=== PATIENT | male | born 1955 | race Caucasian/White ===

== ENCOUNTER 2017-09-15 11:05 | Inpatient (IN) | payer OTHER, BC ==
[2017-09-15] MEDS ORDERED: LIDOCAINE 1% (MDV) 10 ML INJ (13:03)
[2017-09-15] MEDS ORDERED: VERAPAMIL 5 MG INJ (13:03)
[2017-09-15] MEDS ORDERED: FENTAnyl 50 MCG/ML VIAL (13:03)
[2017-09-15] MEDS ORDERED: MIDAZOLAM 1 MG/ML 2 ML INJ ×2 (13:03→13:25)
[2017-09-15] MEDS ORDERED: NITROGLYCERIN (IC) 100 MCG/ML INJ ×2 (13:03→13:50)
[2017-09-15] MEDS ORDERED: IODIXANOL LOCM 100 ML BTL (13:03)
[2017-09-15] MEDS ORDERED: TICAGRELOR 90 MG TABLET (13:43)
[2017-09-15] MEDS: SOD CHLORIDE 0.9% 1,000 ML IV (14:00)
[2017-09-15] MEDS ORDERED: GLUCOSE GEL 15 GRAM TUBE BUCCAL (17:00)
[2017-09-15] MEDS ORDERED: GLUCOSE GEL 15 GRAM TUBE PO ×2 (17:00)
[2017-09-15] MEDS ORDERED: GLUCAGON 1 MG INJ IM (17:00)
[2017-09-15] MEDS ORDERED: DEXTROSE 50% 50 ML SYRINGE IV ×2 (17:00)
[2017-09-15] MEDS: ASPIRIN (EC) 81 MG TAB PO (17:55)
[2017-09-15] MEDS: INSULIN ASPART [NOVOLOG] 3 ML PEN SC ×2 (18:36→21:00)
[2017-09-15] MEDS ORDERED: ACETAMINOPHEN 325 MG TAB PO (20:00)
[2017-09-15] MEDS ORDERED: DOCUSATE SODIUM 100 MG CAP PO (20:00)
[2017-09-15] MEDS ORDERED: ONDANSETRON 4 MG INJ IV (20:00)
[2017-09-15] MEDS: INSULIN GLARGINE [LANTus] (100 UNITS/ML) SYG SC (20:00)
[2017-09-15] MEDS ORDERED: NACL 0.9% 3 ML SYG IV (20:00)
[2017-09-15] MEDS ORDERED: HYDROCODONE/APAP (5/325) TAB PO (20:00)
[2017-09-15] MEDS ORDERED: MAGNESIUM HYDROXIDE 30ML CUP PO (20:00)
[2017-09-15] MEDS ORDERED: morphine 2 MG INJ IV (20:00)
[2017-09-15] MEDS: ATORVASTATIN 80 MG TAB PO (20:46)
[2017-09-15] MEDS: GEMFIBROZIL 600 MG TAB PO (20:46)
[2017-09-15] MEDS: ZOLPIDEM 5 MG TAB PO (20:46)
[2017-09-15] MEDS: MONTELUKAST 10 MG TAB PO (20:47)
[2017-09-15] MEDS ORDERED: ATORVASTATIN 20 MG TAB PO (21:00)
[2017-09-15] MEDS: TICAGRELOR 90 MG TABLET PO (21:04)
[2017-09-16] MEDS: ACCU-CHEK XX (01:11)
[2017-09-16] MEDS ORDERED: LORAZEPAM 2 MG INJ IV (03:00)
[2017-09-16 05:41] LABS: ADD MAN DIFF? NO
[2017-09-16 05:48] LABS: BASOPHILS % 0.6 % (0.0-2.0); EOSINOPHILS # 0.1 10^3/ul (0.0-0.5); EOSINOPHILS % 1.8 % (0.0-7.0); HEMATOCRIT 40.1 % (42.0-52.0); HEMOGLOBIN 13.3 g/dl (14.0-18.0); LYMPHOCYTES # 1.2 10^3/ul (0.8-2.9); LYMPHOCYTES % 17.1 % (15.0-51.0); MEAN CORPUSCULAR HGB CONC 33.2 g/dl (32.0-37.0); MEAN CORPUSCULAR VOLUME 90.5 fl (82.0-101.0); MEAN PLATELET VOLUME 8.7 fl (7.4-10.4); MONOCYTE # 0.7 10^3/ul (0.3-0.9); MONOCYTES % 9.6 % (0.0-11.0); NEUTROPHILS % 70.6 % (39.0-77.0); PLATELET COUNT 379 10^3/UL (140-415); RED BLOOD COUNT 4.43 10^6/ul (4.70-6.10); RED CELL DISTRIBUTION WIDTH 12.9 % (11.5-14.5)
[2017-09-16 05:48] LABS: WHITE BLOOD COUNT 7.1 10^3/ul (4.8-10.8)
[2017-09-16 06:13] LABS: ANION GAP 14 (8-16); BLOOD UREA NITROGEN 29 mg/dl (7-20); CALCIUM 9.1 mg/dl (8.4-10.2); CARBON DIOXIDE 24 mmol/L (21-31); CHLORIDE 109 mmol/L (97-110); CHOL/HDL RATIO 3.9 RATIO; CREATININE 0.86 mg/dl (0.61-1.24); GLUCOSE 105 mg/dl (70-220); HDL CHOLESTEROL 43 mg/dl (30-78); LDL CHOLESTEROL,CALCULATED 87 mg/dl; POTASSIUM 3.5 mmol/L (3.5-5.1); SODIUM 143 mmol/L (135-144); TRIGLYCERIDES 203 mg/dl (0-149)
[2017-09-16 06:13] LABS: CHOLESTEROL 171 mg/dl (100-200)
[2017-09-16] MEDS ORDERED: BIVALIRUDIN 250MG /NS 50 ML 50 ML IVPB (06:55)
[2017-09-16] MEDS: INSULIN ASPART [NOVOLOG] 3 ML PEN SC ×2 (07:35→11:30)
[2017-09-16 07:50] LABS: HEMOGLOBIN A1C 6.4 % (0-5.9)
[2017-09-16] MEDS: NEBIVOLOL 5 MG TAB PO (09:11)
[2017-09-16] MEDS: LISINOPRIL 10 MG TAB PO (09:11)
[2017-09-16] MEDS: ASPIRIN (EC) 81 MG TAB PO (09:11)
[2017-09-16] MEDS: ALLOPURINOL 300 MG TAB PO (09:12)
[2017-09-16] MEDS: TICAGRELOR 90 MG TABLET PO (09:13)
[2017-09-16] MEDS: GEMFIBROZIL 600 MG TAB PO (09:19)
== END 2017-09-16 13:40 | disposition home or self-care (01) | DRG 247 ==
LOC: CCL 11:05 → SDS 11:05 → ICU 14:45 → CCL 22:30 → ICU 19:38
PROVIDERS: Internal Medicine
PROC: 027035Z Dilation of Coronary Artery, One Artery with Two Drug-eluting Intraluminal Devices, Percutaneous Approach (ICD-10-PCS; principal; 2017-09-15 12:30)
DX: I21.4 Non-ST elevation (NSTEMI) myocardial infarction (principal); E11.9 Type 2 diabetes mellitus without complications; I10 Essential (primary) hypertension
CPT/HCPCS: 80048; 80061; 82962; 83036; 85025; 87081; 93005; 93458